=== PATIENT | male | born 1955 | race African-American/Black ===

== ENCOUNTER 2019-02-01 19:12 | Observation (INO) ==
[2019-02-01] MEDS ORDERED: SOLU-MEDROL IV ONE (19:28)
[2019-02-01] MEDS ORDERED: DUONEB (A & A) INH ONE (19:28)
--- NOTE | 2019-02-01 19:35 | PROVIDER DOCUMENTATION ---
HPI-Respiratory General - General Chief Complaint: Cold Symptoms Stated Complaint: wheezing/sob Time Seen by Provider: 02/01/19 19:18 Source: patient Allergies/Adverse Reactions: Patient Allergies Allergy/AdvReac Type Severity Reaction Status Date / Time tetracycline [Tetracycline] AdvReac Intermediate "MY MOUTH Verified 02/01/19 19:26 DRAWS UP AND MY HANDS DRAW" codeine AdvReac ITCHING Verified 02/01/19 19:26 Home Medications: Home Medication List Medication Instructions Recorded Confirmed Last Taken Type Valsartan/Hydrochlorothiazide 1 each PO DAILY #30 tablet 12/05/14 11/24/18 11/24/18 Rx [Valsartan-Hctz 320-25 mg Tab] Clonazepam [Klonopin] 1 mg PO DAILY 01/08/15 11/24/18 11/24/18 History Hydrocodone/APAP 10 mg/325 mg 1 each PO BID 01/08/15 11/24/18 11/23/18 History [[place]-10] Gabapentin 300 mg PO BID 11/24/18 11/24/18 11/23/18 History Amoxicillin/Potassium Clav 1 ea PO BID #20 tab 01/02/19 Unknown Rx [Augmentin 875-125 Tablet] Brompheniramine/Pseudoephed/Dm 10 ml PO Q4-6H PRN PRN #90 syrup 01/02/19 Unknown Rx [Bromfed Dm Cough Syrup] Albuterol Sulfate 2.5 mg INHALATION Q4H PRN PRN #100 01/06/19 Unknown Rx unit Benzonatate [Tessalon [place]] 200 mg PO Q6H PRN PRN #40 cap 01/06/19 Unknown Rx Prednisone 20 mg PO BID #10 tab 01/06/19 Unknown Rx - History of Present Illness-Resp Nature of Presenting Problem: [id number] presents to the ER with c/o wheezing and cough. He states that he thinks it must be a bronchitis flare up, that he gets them real frequently. He states he was just here a few weeks ago with the same symptoms and was given tesslon pearls and albuterol neb for home. He states they seem to help some but now his symptoms have returned and are worse. He states that his cough is much worse at night and he isn't able to sleep. He states he wheezes all night long. He states that he wheezes frequently and often gets URI. He states he had 4 neb treatments [employer]. Context: reports: recent URI Cough Quality/Degree: reports: dry cough Episode Frequency: frequent episodes Modifying Factors: improves with: albuterol nebulizer, coughing, lying down (makes wheezing and cough worse) Associated Symptoms: reports: cough, shortness of breath, wheezing Similar Symptoms Previously?: Yes Recently seen or treated by another doctor?: Yes Review of Systems - Adult - REVIEW OF SYSTEMS - ADULT Constitutional: reports: see HPI. denies: chills, fever Eyes: reports: no symptoms reported Ears, Nose, Mouth & Throat: reports: no symptoms reported. denies: sinus problem Cardiovascular: reports: no symptoms reported, orthopnea. denies: chest pain, poor circulation Respiratory: reports: see HPI, cough, shortness of breath, wheezing Gastrointestinal: reports: no symptoms reported Genitourinary: reports: no symptoms reported Musculoskeletal: reports: no symptoms reported Integumentary: reports: no symptoms reported Neurological: reports: no symptoms reported Psychiatric: reports: no symptoms reported Endocrine: reports: no symptoms reported Hematologic/Lymphatic: reports: no symptoms reported Allergic/Immunologic: reports: no symptoms reported All Other Systems: Reviewed and Negative Past History - Adult - PAST MEDICAL HISTORY-ADULT Review of Records: reports: Old Records Reviewed, Nursing Assessment Review, Medications Reviewed, Social history reviewed & non-contributory. Major Childhood Illnesses: reports: denies history Cardiovascular: reports: HTN, [place] Respiratory: reports: denies history Gastrointestinal: reports: denies history Obstetrical/Gynecological: reports: denies history Genitourinary: reports: denies history Musculoskeletal: reports: denies history Neurological: reports: denies history Psychiatric: reports: denies history Endocrine/Immune: reports: denies history Other Conditions: reports: denies history - PRIOR SURGERIES/PROCEDURES Surgical/Procedure History: reports: none, other (Unspecified back surgery) - PRIOR HOSPITALIZATIONS Prior Hospitalizations: reports: none - IMMUNIZATION STATUS Childhood Immunizations: See Nurse Assessment Flu Vaccine: UTD - FAMILY HISTORY Family History: reviewed, not pertinent - SOCIAL HISTORY Smoking: denies Substance Use: denies Living Situation: family Physical Exam-General - PHYSICAL EXAM-ADULT Initial Vital Signs Reviewed: Yes - CONSTITUTIONAL General Appearance: alert, mild distress - EYES Eyes: PERRL/EOMI, pink conjunctivae - HEAD, EARS, NOSE, MOUTH & THROAT HENMT: normocephalic/atraumatic, moist mucous membranes - NECK Neck: non-tender, full range of motion, supple - RESPIRATORY Respiratory: chest non-tender, wheezing (left >right) - CARDIOVASCULAR Cardiovascular: normal peripheral pulses, regular rate, rhythm - GASTROINTESTINAL (ABDOMEN) Abdominal Exam: normal bowel sounds, non tender, soft - MUSCULOSKELETAL Back Exam: normal inspection Extremity: normal range of motion, non-tender, normal gait - SKIN Integumentary: normal color, normal turgor, warm/dry - NEUROLOGIC Neurologic: sports broadcasting internship II-XII nml as tested - PSYCHIATRIC Psych/Mental Status: normal mood/affect, oriented x 3 - HEART Score HEART Score: History: Slightly Suspicious HEART Score: ECG: Normal HEART Score: Age: 45-65 Years HEART Score: Risk Factors for Atherosclerotic Disease: 1 or 2 Risk Factors HEART Score: Troponin: < or = Normal Limit Total HEART Score:: 2 Progress - PLAN OF CARE/RESULTS Progress/Plan/Lab Results: Vital Signs - 8 hr 02/01/19 19:15 02/01/19 20:16 Temperature 98.4 F Pulse Rate 71 74 Respiratory Rate 16 20 Blood Pressure 186/96 O2 Sat by Pulse Oximetry 97 98 Laboratory Results - last 24 hr 02/01/19 02/01/19 02/01/19 19:35 19:35 19:35 WBC 10.59 RBC 5.15 Hgb 14.2 Hct 42.6 MCV 82.7 MCH 27.6 MCHC 33.3 RDW Std Deviation 13.6 Plt Count 228 MPV 10.7 H Immature Gran % (Auto) 0.0 Neut % (Auto) 62.7 Lymph % (Auto) 24.7 [place] % (Auto) 5.2 Eos % (Auto) 7.0 Baso % (Auto) 0.4 Immature Gran # (Auto) 0.00 Neut # (Auto) 6.64 H Lymph # (Auto) 2.62 [place] # (Auto) 0.55 Eos # (Auto) 0.74 H Baso # (Auto) 0.04 PT 12.2 INR 0.84 PTT (Actin FS) 33.2 D-Dimer, Quantitative < 0.27 Sodium 141 Potassium 3.7 Chloride 102 Carbon Dioxide 27 Anion Gap 12 BUN 11 Creatinine 0.9 Estimated GFR/1.73 m2 > 60 BUN/Creatinine Ratio 12 Glucose 95 Calculated Osmolality 280 Calcium 9.6 Total Bilirubin 0.22 AST 34 ALT 42 Alkaline Phosphatase 87 Total Protein 7.5 Albumin 4.4 Globulin 3.1 Albumin/Globulin Ratio 1.4 Orders Category Date Time Status Saline Loc NOW Care 02/01/19 19:37 Active CHEST-2 VIEWS [RAD] Stat Exams 02/01/19 19:28 Completed CBC WITH ELECTRONIC DIFF [HEME] Stat Lab 02/01/19 19:35 Completed CK PROFILE [SP CHEM] Stat Lab 02/01/19 19:39 Received COMPREHENSIVE METABOLIC PANEL [CHEM] Stat Lab 02/01/19 19:35 Completed D-DIMER [COAG] Stat Lab 02/01/19 19:35 Completed PT [PROTIME WITH INR] [COAG] Stat Lab 02/01/19 19:35 Completed PTT [COAG] Stat Lab 02/01/19 19:35 Completed TROPONIN T Stat Lab 02/01/19 20:36 Received Albuterol 2.5MG/Ipratrop 0.5MG [Duoneb (A & A)] Med 02/01/19 19:28 Discontinued 3 ml INH NOW ONE Methylprednisolone Sod Succ [Solu-Medrol] Med 02/01/19 19:28 Discontinued 60 mg IV NOW ONE Aerosol Treatments Routine Oth 02/01/19 19:29 Completed Aerosol Treatments Stat Oth 02/01/19 19:29 Completed EKG [EKG] Stat Ther 02/01/19 19:37 Ordered Transfer/Admit Order [TRANSFER] Routine Transfer 02/01/19 20:40 Ordered patient verbalizes an understanding of POC and agrees with treatment rendered here today. Patient will be admitted by Dr Rodriguez to the hospital for medical management. Result Diagrams: 02/01/19 19:35 02/01/19 19:35 - REASSESSMENT Reassessment #1 Time Reassessed: 20:34 Status: improving (wheezing has improved slightly since RT, patient is still coughing) - EKG 1 Time of EKG reading by physician:: 19:48 EKG Read and Signed by:: Joann Gregory EKG Interpretation (*Must complete 3 of following elements*): Normal Rate: 65 Rhythm: sinus rhythm [place]: normal QRS: normal [place] Interval: normal ST Wave: normal - XRAY 1 XRAY Study: Chest Impression: Normal (FINDINGS: The lungs are normally expanded and clear. Heart size and mediastinal contours are normal. No pneumothorax or pleural effusion. IMPRESSION: Negative exam.), See EMR Report - CONSULTS/PCP/HOSPITALIST Notification #1 *Consult/PCP/Hospitalist*: Dr Rodriguez Time Discussed: 20:39 Reason/Comments: acute asthma exacerbation Consult Disposition: Will see in ED, Admit Departure - Departure Date of Disposition Decision: 02/01/19 Time of Disposition Decision: 20:43 DIAGNOSIS: Acute asthma exacerbation Qualifiers: Asthma severity: mild Asthma persistence: unspecified Qualified Code(s): J45.901 - Unspecified asthma with (acute) exacerbation Disposition: HOME 01 Certified Medical Emergency: Emergent Condition: Critical Additional Freetext Instructions: ED Follow Up Instructions: You have been treated by a care provider in the Emergency Department. These instructions are being provided to you so you can have an understanding of how to care for yourself upon discharge. Upon discharge from the Emergency Depar tment, you are responsible for making arrangements for follow-up care by a physician of your choice. Take all prescribed medications as directed. Return to the Emergency Department immediately for any new or worsening symptoms. You may call the Physician Referral phone number at [phone] to obtain a list of Physicians who are taking new patients. Referrals and Follow-Ups: Jag Rasheed MD [Primary Care Provider] - - Critical Care Note This patient required my direct & personal management of CC.: No Attestation - Physician/ LUBNA Attestation Patient care was provided by Advanced Practice Provider:: Yes Advanced Practice Provider:: Rajesh Singh Advanced Practice Provider documentation review:: The Mid-level provider documentation, treatment plan and medical decision making was reviewed by the physician who agrees with all treatment and medical decision making by the MLP. The physician spent face to face time with patient:: No Advanced Practice Provider documentation review:: Supervising physician onsite and consulted in the evaluation and care of this patient. The physician did not have a face to face encounter with the patient.
--- NOTE | 2019-02-01 19:53 | Diag Imaging Result Doc PS360 ---
CHEST-2 VIEWS - 02/01/2019 INDICATION: wheezing/sob COMPARISON: 01/06/2019 FINDINGS: The lungs are normally expanded and clear. Heart size and mediastinal contours are normal. No pneumothorax or pleural effusion. IMPRESSION: Negative exam. Electronically signed by Gus Xie 02/01/2019 7:51 PM
[2019-02-01 19:55] LABS: BASO# 0.04 X1000 (0.0-0.2); BASO% 0.4 % (0.0-0.8); EOS# 0.74 X1000 (0.0-0.7); HEMATOCRIT 42.6 % (42.0-52.0); HEMOGLOBIN 14.2 g/dL (14.0-18.0); LYMPH# 2.62 X1000 (1.2-3.4); LYMPH% 24.7 % (20.5-51.1); MCH 27.6 PG (27-31); MCHC 33.3 g/dL (33-37); MCV 82.7 FL (81-99); MONO# 0.55 X1000 (0.11-0.59); MONO% 5.2 % (1.7-9.3); MPV 10.7 FL (7.4-10.4); NEUT# 6.64 X1000 (1.4-6.5); NEUT% 62.7 % (42.2-75.2); PLT 228 X1000 (130-400); RBC 5.15 XMIL (4.7-6.1); RDW 13.6 % (11.5-14.5); WBC 10.59 X1000 (4.8-10.8)
[2019-02-01 20:03] LABS: INR 0.84; PROTIME 12.2 Seconds (11.0-16.0)
[2019-02-01 20:04] LABS: PTT 33.2 Seconds (22.3-41.8)
[2019-02-01 20:24] LABS: AGAP 12; ALB/GLOB RATIO 1.4; ALBUMIN 4.4 g/dL (3.5-5.0); ALKALINE PHOSPHATASE 87 U/L (32-122); BUN 11 mg/dL (8-22); CALCIUM 9.6 mg/dL (8.8-10.2); CHLORIDE 102 mmol/L (98-107); COSMO 280; CREATININE 0.9 mg/dL (0.7-1.2); ESTIMATED GFR > 60; GLUCOSE 95 mg/dL (70-104); GOT 34 U/L (10-34); GPT 42 U/L (10-44); POTASSIUM 3.7 mmol/L (3.5-5.1); SODIUM 141 mmol/L (136-145); TCO2 27 mmol/L (25-35); TOTAL BILIRUBIN 0.22 mg/dL (0.20-1.00); TOTAL PROTEIN 7.5 g/dL (6.3-8.3)
[2019-02-01] MEDS ORDERED: NEURONTIN PO SCH (21:00)
[2019-02-01] MEDS ORDERED: CATAPRES PO SCH (21:00)
[2019-02-01] MEDS ORDERED: NORCO-10 PO SCH ×2 (21:00)
[2019-02-01] MEDS ORDERED: LOVENOX SUBQ SCH (21:08)
[2019-02-01] MEDS ORDERED: TYLENOL PO PRN (21:08)
[2019-02-01] MEDS ORDERED: ZOFRAN IV PRN (21:08)
[2019-02-01] MEDS ORDERED: FLONASE NAS SCH (21:30)
[2019-02-01 21:34] LABS: CK INDEX 1.1 (0.0-2.5); CK-MB 7.74 ng/mL (0.0-5.0)
[2019-02-01] MEDS: DUONEB (A & A) INH SCH (21:44)
[2019-02-01] MEDS: BROVANA NEB INH SCH (21:44)
--- NOTE | 2019-02-01 22:01 | HISTORY AND PHYSICAL ---
PRIMARY CARE PHYSICIAN: Jag Rasheed MD. REASON FOR ADMISSION: Shortness of breath for the last 2-3 weeks. HISTORY OF PRESENT ILLNESS: Mr. King Pena is a 63-year-old, -Malagasy man, with past medical history of hypertension and DJD of the spine. He reports that this is his 4th visit to the ER, last visit was 3 weeks ago. He has come to the ER for the same complaints of acute shortness of breath, which is always diagnosed as bronchitis and he is sent home with an inhaler, which does not seem to work for him. He reports that most of the time he has profound nocturnal coughing spells which get better in the morning. He says at night, it is also accompanied by worsening shortness of breath. He says during the course of the day, sometimes he might get an attack of difficulty breathing, but it resolves on its own after a few minutes. This is also accompanied by occasional transient chest pain that lasts a few seconds, nonradiating. The patient reports that he has a longstanding history of nasal congestion and occasional seasonal spells. He denies any oculonasal pruritus. He states that the reason why he came today is because he was at his cousin's house and had tightness in his chest with acute shortness of breath, and wanted this to get checked out. He denies any fever or chills. REVIEW OF SYSTEMS: No GI or complaints. No PND or orthopnea, any anginal- type symptoms. No focal neurological complaints, rash, or arthralgia. Denies any postnasal drip. ALLERGIES: Codeine and tetracycline. MEDICATIONS: Klonopin 1 mg daily, Neurontin 300 mg b.i.d., clonidine 0.1 mg b.i.d., [place] 10 mg b.i.d., albuterol q.4 p.r.n. FAMILY HISTORY: Dad had asthma. Mom of a heart attack. Dad also has COPD and colon cancer. SOCIAL HISTORY: with 2 kids. Does not smoke, drink, or use drugs. SURGICAL HISTORY: None. LABORATORY AND DIAGNOSTIC DATA: Chest film is devoid of any acute cardiopulmonary process. White count 11,000, hemoglobin and hematocrit 12 and 42, platelets 228,00, with mildly elevated eosinophils. Chemistries, totally benign. D-dimer is negative. PT and PTT normal. Troponin is pending. EKG is not available for my review at this time. PHYSICAL EXAMINATION: VITAL SIGNS: Blood pressure 186/96, heart rate 71, respirations 16, temperature is 98.4 degrees, O2 saturation is 97% on room air. GENERAL: He is a pleasant, middle-aged, -Malagasy man, not in acute distress. He is alert, oriented to person and time, with normal mood and affect. HEENT: Head is normocephalic, atraumatic. Eyes, ROM, EOMI. He is anicteric and not pale. He does have No central cyanosis. NECK: Supple. No JVD or carotid bruit. No thyromegaly. No cervical lymphadenopathy. CHEST: Decreased entry in the bases. A few expiratory wheezes. CARDIOVASCULAR: First and second heart sounds heard. No gallops, murmurs, or rubs. Rhythm is regular. ABDOMEN: Full. Not tender. No masses or organomegaly. Bowel sounds are normal. RECTAL: Deferred at this time. EXTREMITIES: Patient has no edema, clubbing, or peripheral cyanosis. Good distal pulses and volumes which are symmetrical, regular. NEUROLOGICAL: No gross focal deficits. No tremors. SKIN: Intact. No breakdown, lesion, or erythema. MUSCULOSKELETAL: Grossly normal. ASSESSMENT: At this time is: 1. Acute asthma exacerbation. 2. Hypertension. 3. Seasonal allergic rhinitis. PLAN: Patient will be admitted for optimal treatment for acute on chronic, persistent asthma with systemic steroids and will initiate prophylactic inhalation therapy. Patient will need to be taught by Respiratory Therapy who to use his MDI because he says he was discharged on albuterol inhaler, but does not know how to use them appropriately. Also, will start patient on Flonase to address the nasal allergic component, which could be a trigger. Will start patient on long- and short-acting bronchodilators. Hopefully, the patient can be discharged tomorrow evening, if symptoms improve. The patient's mild eosinophilia confirms my suspicion of an atopic process. We are currently awaiting his troponin, and if positive, may alter our treatment, but I would doubt this. cc: Sheldon Rodriguez MD MTDNancy
--- NOTE | 2019-02-01 23:39 | EKG Report ---
Test Performed on : 02/01/2019 7:48:30 PM Test Reason : sob Blood Pressure : / mmHG Vent. Rate : 065 BPM Atrial Rate : 065 BPM P-R Int : 178 ms QRS Dur : 080 ms QT Int : 390 ms P-R-T Axes : 046 -14 068 degrees QTc Int : 405 ms Normal sinus rhythm. Minimal voltage criteria for LVH, may be normal variant Nonspecific T wave abnormality Abnormal ECG When compared with ECG of 10-JAN-2018 09:12, premature atrial complexes. are no longer present Unconfirmed Result
[2019-02-02] MEDS: CATAPRES PO SCH ×2 (00:11→09:32)
[2019-02-02] MEDS: NORCO-10 PO SCH ×2 (00:12→09:32)
[2019-02-02] MEDS: NEURONTIN PO SCH ×2 (00:12→09:30)
[2019-02-02] MEDS: SOLU-MEDROL IV SCH ×2 (02:15→11:26)
[2019-02-02] MEDS: FLOVENT 110 MICROGM HFA INH SCH ×2 (03:42→09:56)
[2019-02-02] MEDS: DUONEB (A & A) INH SCH ×3 (03:55→09:56)
[2019-02-02 07:03] LABS: AGAP 12; BUN 10 mg/dL (8-22); CALCIUM 9.4 mg/dL (8.8-10.2); CHLORIDE 99 mmol/L (98-107); COSMO 277; CREATININE 0.8 mg/dL (0.7-1.2); ESTIMATED GFR > 60; GLUCOSE 144 mg/dL (70-104); POTASSIUM 4.7 mmol/L (3.5-5.1); SODIUM 138 mmol/L (136-145); TCO2 27 mmol/L (25-35)
[2019-02-02 07:29] VITALS: BP 174/100
[2019-02-02] MEDS ORDERED: KLONOPIN PO SCH (09:00)
[2019-02-02] MEDS: TESSALON PO SCH ×2 (09:32→11:26)
[2019-02-02] MEDS: BROVANA NEB INH SCH (09:56)
--- NOTE | 2019-02-02 22:30 | DISCHARGE SUMMARY ---
ADMISSION DATE: 02/01/2019 DISCHARGE DATE: 02/02/2019 DISCHARGE DIAGNOSES: 1. Acute asthma exacerbation, resolved. 2. Hypertension. 3. Seasonal allergies. PROCEDURES PERFORMED: Chest x-ray dated 02/01/2019. Impression: Negative exam. HOSPITAL COURSE: A 63-year-old male with a past medical history of hypertension and DJD of the spine. He reported that this is the 4th visit to the emergency department and his last visit was 3 weeks ago. He has been admitted on 02/01/2019. He came in complaining of shortness of breath. He has been always diagnosed with bronchitis and sent home with an inhaler, which works sometimes for him but not all the time. He has been having coughing spells mostly during the night and they get better in the morning. Upon admission, he had a decreased air entry bilaterally mostly at the bases with a few expiratory wheezes. He was placed on steroids, breathing treatment. Today, he is completely asymptomatic. He was able to take a shower by himself. He is not having shortness of breath or problem talking. No chest pain either. This patient will be discharged home with breathing treatment and steroids as well. We teach the patient how to use the albuterol inhaler, the pump, and he seems to understand. He feels good today. PHYSICAL EXAMINATION: Vital signs: Temperature 98.1 degrees, pulse 88, respiratory rate 18, blood pressure 174/100, oxygen saturation 97% on room air. HEENT: Head normocephalic. No trauma. PERRLA. Neck: Supple. No JVD. No masses. Central trachea. Chest: Clear to auscultation. No wheezing. No rales. A little bit of crepitus at the bases. Abdomen: Soft, nontender, nondistended. No hepatosplenomegaly. Extremities: No edema, no clubbing, no cyanosis. Neurological: The patient is alert. He is oriented x3. No focal neurological deficits. LABORATORY: Sodium 138, potassium 4.7, chloride 99, bicarbonate 27, BUN 10, creatinine 0.8, glucose 144, calcium 9.4. DISCHARGE MEDICATIONS: Albuterol sulfate 2.5 mg inhalation q.4 hours as needed. Also he will be discharged with albuterol sulfate inhaler/pump 2 puff inhaler q.6 hours as needed, Tessalon 200 mg p.o. b.i.d., Klonopin 1 mg p.o. daily, clonidine 0.1 mg p.o. b.i.d., Flonase 2 spray intranasally at bedtime, Flovent inhaler 110 mcg HFA 2 puff inhaler b.i.d., gabapentin 300 mg p.o. b.i.d., [place] 10. He will continue with his home dose of 1 tablet p.o. b.i.d. and Medrol Dosepak as directed. DISCHARGE CONDITION: The patient is stable medical condition tolerating p.o. ambulating by himself. No shortness of breath. He will be discharged home. Follow up with his primary care doctor in 1 week. cc: Titi Manley MD
== END 2019-02-02 12:48 | disposition home or self-care (01) ==
LOC: ED 19:12 → 3N 23:36 → INTOOBSV 23:36 → SUATTDRO 23:36
PROVIDERS: ATTEND Internal Medicine
CPT/HCPCS: 71020; 71046; 80048; 80053; 82550; 82553; 84484; 85025; 85379; 85610; 85730; 93005; 94640; 94760; A9270; J1650; J2930

== ENCOUNTER 2019-03-03 10:06 | Observation (INO) ==
[2019-03-03] MEDS ORDERED: CATAPRES PO ONE (10:34)
[2019-03-03 10:42] LABS: BASO# 0.02 X1000 (0.0-0.2); BASO% 0.2 % (0.0-0.8); EOS# 0.32 X1000 (0.0-0.7); EOS% 3.2 % (0.0-10.0); HEMATOCRIT 43.9 % (42.0-52.0); HEMOGLOBIN 14.3 g/dL (14.0-18.0); LYMPH# 2.65 X1000 (1.2-3.4); LYMPH% 26.7 % (20.5-51.1); MCH 27.8 PG (27-31); MCHC 32.6 g/dL (33-37); MCV 85.2 FL (81-99); MONO# 0.69 X1000 (0.11-0.59); MONO% 6.9 % (1.7-9.3); MPV 11.1 FL (7.4-10.4); NEUT# 6.25 X1000 (1.4-6.5); PLT 235 X1000 (130-400); RBC 5.15 XMIL (4.7-6.1); WBC 9.93 X1000 (4.8-10.8)
--- NOTE | 2019-03-03 10:49 | Diag Imaging Result Doc PS360 ---
EXAM: CHEST-2 VIEWS 03/03/2019 HISTORY: chest pain TECHNIQUE: PA and lateral chest COMMENT: There is no evidence of acute cardiac or pulmonary disease. Compared to 02/01/2019 there has been no significant change in the appearance of the chest. IMPRESSION: No acute disease. Electronically signed by Remy Mccollum 03/03/2019 10:46 AM
[2019-03-03 11:00] LABS: AGAP 13; BUN 15 mg/dL (8-22); CALCIUM 9.6 mg/dL (8.8-10.2); CHLORIDE 101 mmol/L (98-107); COSMO 274; CREATININE 1.1 mg/dL (0.7-1.2); ESTIMATED GFR > 60; GLUCOSE 113 mg/dL (70-104); POTASSIUM 4.4 mmol/L (3.5-5.1); SODIUM 136 mmol/L (136-145); TCO2 22 mmol/L (25-35)
[2019-03-03 11:01] LABS: ALB/GLOB RATIO 1.6; ALBUMIN 4.6 g/dL (3.5-5.0); ALKALINE PHOSPHATASE 72 U/L (32-122); GOT 32 U/L (10-34); GPT 46 U/L (10-44); TOTAL BILIRUBIN 0.51 mg/dL (0.20-1.00); TOTAL PROTEIN 7.4 g/dL (6.3-8.3)
[2019-03-03 11:02] LABS: INR 1.02; PROTIME 13.6 Seconds (11.0-16.0)
[2019-03-03 11:03] LABS: URINE SOURCE CATH
[2019-03-03 11:09] LABS: CK PROFILE 724 U/L (24-204)
--- NOTE | 2019-03-03 11:09 | Diag Imaging Result Doc PS360 ---
EXAM: CT HEAD W/O CONTRAST HISTORY: speech, L arm difficulty TECHNIQUE: CT head without contrast COMPARISON: 04/11/2014 FINDINGS: No parenchymal hemorrhage. No epidural or subdural hematoma. No subarachnoid hemorrhage. Mild microvascular ischemic changes. No mass identified on this noncontrasted exam. No hydrocephalus. No sinus opacification. IMPRESSION: 1.No hemorrhage 2.Mild microvascular ischemic changes. This exam was performed using automated exposure control, adjustment of mA or kV according to patient size, and/or use of iterative reconstruction technique. Electronically signed by Bhanu Kelley 03/03/2019 11:06 AM
[2019-03-03 11:10] LABS: UR EPITHELIAL CELLS <10 /HPF (<10); URINE BACTERIA NEGATIVE /HPF; URINE RBC <10 /HPF (<10); URINE WBC <10 /HPF (<10)
[2019-03-03 11:11] LABS: BILIRUBIN URINE NEGATIVE (NEGATIVE); BLOOD URINE SMALL (NEGATIVE); COLOR YELLOW; GLUCOSE URINE NEGATIVE (NEGATIVE); KETONE URINE NEGATIVE (NEGATIVE); LEUKOCYTES URINE NEGATIVE (NEGATIVE); NITRITE URINE NEGATIVE (NEGATIVE); PROTEIN URINE 70 mg/dL (NEGATIVE); SP GRAVITY URINE 1.028; TURBIDITY URINE CLEAR (CLEAR); UROBILINOGEN URINE NORMAL (NORMAL)
[2019-03-03 11:14] LABS: PTT 33.4 Seconds (22.3-41.8)
[2019-03-03 11:19] LABS: UR AMPHETAMINES QUAL NONE DETECTED (NONE DETECT); UR BARBITUATES QUAL NONE DETECTED (NONE DETECT); UR BENZODIAZEPIN QUAL NONE DETECTED (NONE DETECT); UR CANNABINOIDS QUAL NONE DETECTED (NONE DETECT); UR COCAINE QUAL NONE DETECTED (NONE DETECT); UR METHADONE QUAL NONE DETECTED (NONE DETECT); UR OPIATES QUAL NONE DETECTED (NONE DETECT); UR OXYCODONE QUAL NONE DETECTED (NONE DETECT); UR PCP QUAL NONE DETECTED (NONE DETECT)
[2019-03-03 11:27] LABS: CK INDEX 1.5 (0.0-2.5); CK-MB 10.93 ng/mL (0.0-5.0)
--- NOTE | 2019-03-03 11:49 | EKG Report ---
Test Performed on : 03/03/2019 10:12:25 AM Test Reason : chest pain Blood Pressure : / mmHG Vent. Rate : 086 BPM Atrial Rate : 086 BPM P-R Int : 170 ms QRS Dur : 074 ms QT Int : 358 ms P-R-T Axes : 044 -22 084 degrees QTc Int : 428 ms Normal sinus rhythm. Possible Left atrial enlargement Left ventricular hypertrophy Nonspecific T wave abnormality Abnormal ECG When compared with ECG of 01-FEB-2019 19:48, (Unconfirmed) No significant change was found Unconfirmed Result
--- NOTE | 2019-03-03 12:45 | PROVIDER DOCUMENTATION ---
This chart was entered by Forest Gill Scribe, acting as scribe for Ever Olsen MD. HPI-General Adult - General Chief Complaint: Extremity Pain Stated Complaint: STROKE SYMPTOMS X 3 DAYS Time Seen by Provider: 03/03/19 10:13 Source: patient Allergies/Adverse Reactions: Patient Allergies Allergy/AdvReac Type Severity Reaction Status Date / Time tetracycline [Tetracycline] AdvReac Intermediate "MY MOUTH Verified 03/03/19 11:23 DRAWS UP AND MY HANDS DRAW" codeine AdvReac ITCHING Verified 03/03/19 11:23 Home Medications: Home Medication List Medication Instructions Recorded Confirmed Last Taken Type Clonazepam [Klonopin] 1 mg PO BID 01/08/15 03/03/19 11/24/18 History Hydrocodone/APAP 10 mg/325 mg 1 each PO BID 01/08/15 03/03/19 11/23/18 History [[place]-10] Gabapentin 300 mg PO BID 11/24/18 03/03/19 11/23/18 History Clonidine [Catapres] 0.1 mg PO BID 02/01/19 03/03/19 02/01/19 09:30 History Albuterol Sulfate 2.5 mg INHALATION Q4H PRN PRN #100 02/02/19 03/03/19 Unknown Rx unit Albuterol Sulfate Inhaler 2 puff INH Q6H PRN PRN #1 inhaler 02/02/19 03/03/19 Unknown Rx [Ventolin Hfa] Benzonatate [Tessalon] 200 mg PO BID #20 cap 02/02/19 03/03/19 Unknown Rx Fluticasone 50 Mcg Nasal [place] 2 spray INTRANASAL QHS PRN 03/03/19 03/03/19 Unknown History [Flonase] Fluticasone Propionate 110 INH 2 puff INH BID PRN 03/03/19 03/03/19 Unknown History [Flovent 110 Microgm Hfa] - History of Present Illness -Gen Adult Nature of Presenting Problems: Pt is a 63 yom who presents to the ED with multiple complaints. Pt states he has been having left arm pain, left leg pain, slurred speech, a headache, and mild chest pain three days ago. Pt reports a hx of HTN, nerve damage, degenerative discs, and asthma. Pt denies any shortness of breath, abdominal pain, nausea, or vomiting. Upon examination the pt did not show signs of nystagmus or pronator drift in his extremities. Upon examination the pt had a mild tremor in his left upper extremity. Upon examination the pt had decreased sensation to the left side of his face, CN 7 division 1-3 and slow hand motions on upper extremity tests. Location of Pain/Injury: reports: head, upper extremity, lower extremity Quality of Pain: reports: sharp Severity: reports: mild Onset/Duration: reports: 3 days ago Timing: reports: still present Associated Symptoms: reports: arm pain, headaches, joint pain Similar Symptoms Previously?: No Recently seen or treated by another doctor?: No Review of Systems - Adult - REVIEW OF SYSTEMS - ADULT Constitutional: reports: no symptoms reported Eyes: reports: no symptoms reported Ears, Nose, Mouth & Throat: reports: see HPI Cardiovascular: reports: see HPI Respiratory: reports: no symptoms reported Gastrointestinal: reports: no symptoms reported Genitourinary: reports: no symptoms reported Musculoskeletal: reports: see HPI, joint pain, muscle weakness Integumentary: reports: no symptoms reported Neurological: reports: see HPI, slurred speech Psychiatric: reports: no symptoms reported Endocrine: reports: no symptoms reported Hematologic/Lymphatic: reports: no symptoms reported Allergic/Immunologic: reports: no symptoms reported All Other Systems: Reviewed and Negative Past History - Adult - PAST MEDICAL HISTORY-ADULT Review of Records: reports: Old Records Reviewed, Nursing Assessment Review, Medications Reviewed, Social history reviewed & non-contributory. Major Childhood Illnesses: reports: denies history Cardiovascular: reports: HTN, NE Respiratory: reports: denies history Gastrointestinal: reports: denies history Obstetrical/Gynecological: reports: denies history Genitourinary: reports: denies history Musculoskeletal: reports: denies history Neurological: reports: denies history Psychiatric: reports: denies history Endocrine/Immune: reports: denies history Other Conditions: reports: denies history - PRIOR SURGERIES/PROCEDURES Surgical/Procedure History: reports: none, other (Unspecified back surgery) - PRIOR HOSPITALIZATIONS Prior Hospitalizations: reports: none - IMMUNIZATION STATUS Childhood Immunizations: See Nurse Assessment Flu Vaccine: UTD - FAMILY HISTORY Family History: reviewed, not pertinent - SOCIAL HISTORY Smoking: denies, non-smoker Substance Use: alcohol Alcohol Use Frequency: occasionally Physical Exam-General - CONSTITUTIONAL General Appearance: alert, mild distress - EYES Eyes: PERRL/EOMI, pink conjunctivae - HEAD, EARS, NOSE, MOUTH & THROAT HENMT: moist mucous membranes - NECK Neck: non-tender, full range of motion - RESPIRATORY Respiratory: chest non-tender, lungs clear, normal breath sounds, no pleuratic chest pain, no respiratory distress - CARDIOVASCULAR Cardiovascular: normal peripheral pulses, regular rate, rhythm, no edema, no gallop, no JVD - GASTROINTESTINAL (ABDOMEN) Abdominal Exam: non tender, soft - MUSCULOSKELETAL Back Exam: normal inspection Extremity: non-tender, other (See HPI) - SKIN Integumentary: normal color, warm/dry - NEUROLOGIC Neurologic: abnormal content architect II-XII (See HPI), motor weakness, other (See HPI) - PSYCHIATRIC Psych/Mental Status: normal mood/affect, normal thought content, normal thought process, oriented x 3 Progress - PLAN OF CARE/RESULTS Progress/Plan/Lab Results: Vital Signs - 8 hr 03/03/19 10:07 Temperature 99.0 F Pulse Rate 92 H Respiratory Rate 18 Blood Pressure 156/104 O2 Sat by Pulse Oximetry 99 Laboratory Results - last 24 hr 03/03/19 10:18 WBC 9.93 RBC 5.15 Hgb 14.3 Hct 43.9 MCV 85.2 MCH 27.8 MCHC 32.6 L RDW Std Deviation 14.0 Plt Count 235 MPV 11.1 H Neut % (Auto) 63.0 Lymph % (Auto) 26.7 [place] % (Auto) 6.9 Eos % (Auto) 3.2 Baso % (Auto) 0.2 Neut # (Auto) 6.25 Lymph # (Auto) 2.65 [place] # (Auto) 0.69 H Eos # (Auto) 0.32 Baso # (Auto) 0.02 Orders Category Date Time Status Cardiac Monitoring DIRECTED Care 03/03/19 10:28 Active Saline Loc NOW Care 03/03/19 10:28 Active CHEST-2 VIEWS [RAD] Stat Exams 03/03/19 10:[address] HEAD W/O CONTRAST [CT] Stat Exams 03/03/19 10:33 Ordered CBC WITH ELECTRONIC DIFF [HEME] Stat Lab 03/03/19 10:18 Completed CK PROFILE [SP CHEM] Stat Lab 03/03/19 10:29 Received COMPREHENSIVE METABOLIC PANEL [CHEM] Stat Lab 03/03/19 10:29 Received PRO B-NATRIURETIC PEPTIDE Stat Lab 03/03/19 10:18 Received PROTIME WITH INR [COAG] Stat Lab 03/03/19 10:18 Received PTT [COAG] Stat Lab 03/03/19 10:18 Received TROPONIN T Stat Lab 03/03/19 10:18 Received URINALYSIS W/POSS RFLX CULT [URINALYSIS] Stat Lab 03/03/19 10:34 Uncollected URINE DRUG SCREEN Stat Lab 03/03/19 10:34 Uncollected Clonidine [Catapres] Med 03/03/19 10:34 Discontinued 0.2 mg PO NOW ONE CP/SOB/Palp >45 yrs of Age Stat Oth 03/03/19 10:28 Ordered EKG [EKG] Stat Ther 03/03/19 10:28 Ordered Result Diagrams: 03/03/19 10:18 03/03/19 10:18 - EKG 1 Time of EKG reading by physician:: 10:15 EKG Read and Signed by:: Ever Olsen EKG Interpretation (*Must complete 3 of following elements*): Abnormal (Possible left atrial enlargement; left ventricular hypertrophy; Nonspecific T wave abnormality) Rate: 86 Rhythm: NSR [place]: left QRS: normal PA Interval: normal ST Wave: non-specific ST changes - XRAY 1 XRAY: Bilateral XRAY Study: Chest Impression: See EMR Report ( EXAM: CHEST-2 VIEWS 03/03/2019 HISTORY: chest pain TECHNIQUE: PA and lateral chest COMMENT: There is no evidence of acute cardiac or pulmonary disease. Compared to 02/01/2019 there has been no significant change in the appearance of the chest. IMPRESSION: No acute disease. Electronically signed by Remy Mccollum 03/03/2019 10:46 AM 03/03/19 1046 Interpreting Physician: Remy Mccollum MD Dictated Date/Time: 03/03/19 1046 cc: Ever Olsen MD; Jag Rasheed MD) - CONSULTS/PCP/HOSPITALIST Notification #1 *Consult/PCP/Hospitalist*: Dr. Richardson (Hospitalist) Time Discussed: 12:35 Reason/Comments: Made aware of pt and accepts admission Consult Disposition: Admit Departure - Departure Date of Disposition Decision: 03/03/19 Time of Disposition Decision: 12:39 DIAGNOSIS: CVA (cerebral vascular accident) Disposition: ADMITTED INPATIENT 09 Certified Medical Emergency: Emergent Condition: Stable Additional Freetext Instructions: ED Follow Up Instructions: You have been treated by a care provider in the Emergency Department. These instructions are being provided to you so you can have an understanding of how to care for yourself upon discharge. Upon discharge from the Emergency Department, you are responsible for making arrangements for follow-up care by a physician of your choice. Take all prescribed medications as directed. Return to the Emergency Department immediately for any new or worsening symptoms. You may call the Physician Referral phone number at [phone] to obtain a list of Physicians who are taking new patients. Referrals and Follow-Ups: Jag Rasheed MD [Primary Care Provider] - - Critical Care Note This patient required my direct & personal management of CC.: No Attestation - Physician/ LUBNA Attestation Patient care was provided by Advanced Practice Provider:: No The physician spent face to face time with patient:: Yes Advanced Practice Provider documentation review:: Supervising physician onsite and consulted in the evaluation and care of this patient. The physician did have a face to face encounter with the patient. This chart was documented by the indicated scribe, (Forest Gill, Scribe) and accurately reflects the services I performed and decisions made by me, Ever Olsen MD, as attested by the provider's signature.
[2019-03-03] MEDS ORDERED: ASPIRIN PO STA (12:47)
[2019-03-03] MEDS ORDERED: TYLENOL PO PRN (13:33)
[2019-03-03] MEDS ORDERED: ZOFRAN IV PRN (13:33)
[2019-03-03] MEDS ORDERED: TORADOL PO ONE (14:06)
--- NOTE | 2019-03-03 14:29 | HISTORY AND PHYSICAL ---
PRIMARY CARE PROVIDER: Jag Rasheed MD CHIEF COMPLAINT: Right-sided weakness, numbness, burning pain, headache, slurred speech. HISTORY OF PRESENT ILLNESS: Mr. Pena is a 63-year-old gentleman, who carries a past medical history of hypertension, degenerative joint disease of the spine, asthma, and seasonal allergies, who had recently been admitted to our service back in January for an asthma exacerbation. He then reported back to the ED on 02/15/2019 after he fell in the bathtub, and at that time, he was complaining of right elbow, left hip and thigh pain, as well as back tightness. He reports with his degenerative disk disease they are wanting to replace the disk; however, he has not made up his mind about surgery. He states 3 days ago at night he started having a sharp shooting pain that goes down his left arm. He has some left hand numbness. He also reported a brief episode of the same type of pain in his chest that started on the left, went to the right, and it was over just as soon as it started. He reported some slurred speech yesterday that only lasted for a few seconds. He felt like he could not get his words out right, and this morning he started to have shooting pain going down his right arm and left leg pain shooting, as well as toe numbness. In the ED, he did have a head CT that showed no microvascular ischemic changes. We are going to go ahead and do a full neurological workup. We have already ordered a brain MRI/MRA, and given his numbness and burning sensation, we will go ahead and do a CT of the cervical and lumbar spine and continue with further evaluation and treatment. PAST MEDICAL HISTORY: 1. Hypertension. 2. Degenerative joint disease of the spine for which he says he needs the disks repaired. 3. Asthma. 4. Seasonal allergies. SURGICAL HISTORY: None. FAMILY HISTORY: Dad with asthma. Mom of a heart attack. Father had COPD and colon cancer as well. SOCIAL HISTORY: He is . He has 2 children. No alcohol, tobacco, or illicit drug use. ALLERGIES: Codeine and tetracycline. HOME MEDICATIONS: 1. Albuterol sulfate 2.5 mg inhaled q.4 h. p.r.n. wheezing, shortness of breath. 2. Albuterol sulfate inhaler p.r.n. 3. Tessalon [place] 200 mg p.o. b.i.d. 4. Catapres 0.1 mg p.o. b.i.d. 5. Flonase 2 sprays nasal at bedtime p.r.n. congestion. 6. Flovent 110 mcg inhaler 2 puffs inhaled b.i.d. p.r.n. cough. 7. Klonopin 1 mg p.o. b.i.d. 8. Gabapentin 300 mg p.o. b.i.d. 9. [place] 10 one each p.o. b.i.d. REVIEW OF SYSTEMS: A 12 point review of systems was completely negative except for those mentioned in HPI. PHYSICAL EXAMINATION: VITAL SIGNS: Temperature is 98.6 degrees, heart rate 64, respirations 18, blood pressure 151/107, O2 is 99% on room air. GENERAL: Mr. Pena is a 63-year-old male, who is sitting up on the side of bed and talking on his cell phone, in no acute distress. HEENT: Atraumatic, normocephalic. PERRL. NECK: Supple. Trachea midline. CARDIOVASCULAR: S1, S2 appreciated. No murmurs, gallops, or rubs noted. RESPIRATORY: Lung sounds clear bilaterally. GASTROINTESTINAL: Soft, nontender, nondistended. Positive bowel sounds 4 quadrants. EXTREMITIES: The patient had a good grasp and strength upper and lower bilaterally. However, the right was definitely 5/5. The left was slightly weaker than the right, but still good grasp strength. He was able to stand up from the side of the bed on his own. He moved around without any issues. No other focal deficits noted. DIAGNOSTIC STUDIES: Head CT: No hemorrhage, mild microvascular ischemic changes. EKG: Normal sinus rhythm. Chest x-ray: No acute disease. LABORATORY DATA: White count 9, hemoglobin 14, hematocrit 43, platelet count of 235,000. Sodium 136, potassium 4.4, BUN 15, creatinine 1.1, blood glucose is 113. Troponin was less than 0.010. Toxicology screen was negative. Urinalysis is negative for bacteria nitrate. ASSESSMENT AND PLAN: 1. Transient ischemic attack versus cerebrovascular accident versus nerve pain, rule out. We will do a full neurological workup. Given that the patient does have some symptoms of TIA versus CVA, we will do carotid Dopplers, echocardiogram, brain MRI/MRA. Continue with full- dose aspirin, statin check lipid profile, neurological checks. 2. Left upper and lower extremity nerve pain. We will continue with his home gabapentin. We will get cervical and lumbar CT. 3. Asthma without any exacerbation. 4. Hypertension. We will allow for permissive hypertension 220/120 for 24 hours. 5. Seasonal allergies. Aware. Further recommendation to follow physician evaluation and laboratory and diagnostic data. Dictated by YASMEEN Crawley for Kp Pualino MD Addendum: Patient seen and examined by myself. Agree with YASMEEN note. It reflects my assessment and plan. Patient is being admitted for TIA workup. We have order MRI of brain and MRA of neck as well. Also CT of lumbar spine has been ordered. Will monitor patient closely and follow up those results. cc: Kp Paulino MD MTDD
--- NOTE | 2019-03-03 15:41 | Diag Imaging Result Doc PS360 ---
EXAM: MRI BRAIN W/O CONTRAST 03/03/2019 HISTORY: cva TECHNIQUE: T1 sagittal and axial, T2, FLAIR, DWI axial and coronal gradient echo. COMMENT: There is mucosal thickening in both maxillary sinuses particularly the inferior portion of the left. There is no evidence of intracranial mass effect or bleed. There is extensive abnormal increased T2-weighted signal intensity in the white matter both hemispheres particularly in the periventricular white matter posteriorly adjacent to the atria of the lateral ventricles and in the subcortical white matter of the convexities. There is no evidence of restricted diffusion. IMPRESSION: Extensive chronic ischemic microvascular white matter change. Chronic maxillary sinusitis. Electronically signed by Remy Mccollum 03/03/2019 3:38 PM
--- NOTE | 2019-03-03 15:42 | Diag Imaging Result Doc PS360 ---
EXAM: MRA BRAIN W/O CONTRAST 03/03/2019 HISTORY: cva TECHNIQUE: 3-D [id number] COMMENT: There is no evidence of major branch occlusion or aneurysm. There are no previous studies available for comparison. IMPRESSION: Normal study. Electronically signed by Remy Mccollum 03/03/2019 3:39 PM
--- NOTE | 2019-03-03 16:20 | Diag Imaging Result Doc PS360 ---
EXAM: CT CERV/THORAX/LUMB SPINE W/O 03/03/2019 HISTORY: Right sided weakness, numbness and burning pain TECHNIQUE: This exam was performed using automated exposure control, adjustment of mA or kV according to patient size, and/or use of iterative reconstruction technique. COMMENT: Cervical spine: At the C2-3 level there is no evidence of spinal or foraminal stenosis. At C3-4 there is posterior osteophyte formation without evidence of significant spinal or foraminal stenosis. At C4-5 there is posterior osteophyte formation at the disc space and foraminal stenosis worse on the left than the right. At the C5-6 level there is posterior osteophyte formation with mild bilateral foraminal stenosis. At the C6-7 level there is posterior osteophyte formation and uncovertebral arthropathy with mild narrowing of the foramina bilaterally. There is a mild degree of spinal stenosis. At the C7-T1 level there is no evidence of significant spinal stenosis. The right foramen is slightly narrowed. The facets are aligned bilaterally. There is some heterotopic bone formation posterior to the spinous process of C5 and C6. Thoracic spine: At the T7-8 level there is some vacuum disc phenomenon and there is irregularity of the endplates particularly the upper endplate of T8. There is also vacuum disc phenomenon at the T8-9 level. There is no evidence of acute fracture or subluxation. Lumbar spine: There is vacuum disc phenomenon at the L2-3, L3-4 and L4-5 levels. There are Schmorl nodes at multiple levels. There is no evidence of acute fracture or subluxation. At the L1-2 level there is no evidence of spinal or foraminal stenosis. At L2-3 there is disc bulge without evidence of spinal or foraminal stenosis. At the L3-4 level there is disc space narrowing and osteophyte formation with disc bulge and ligamentum flavum hypertrophy. The foramina are patent but there is a moderate degree of spinal stenosis. At the L4-5 level there is severe facet arthropathy particularly on the left with ligamentum flavum hypertrophy and disc bulge producing a severe degree of spinal stenosis. At the L5-S1 level there is no evidence of spinal or foraminal stenosis. IMPRESSION: Degenerative disc and facet changes as described above with spinal stenosis at C6-7, L3-4, and L4-5. Multilevel foraminal stenosis as described above. Electronically signed by Remy Mccollum 03/03/2019 4:18 PM
[2019-03-03] MEDS: SOLU-MEDROL IV SCH (16:50)
--- NOTE | 2019-03-03 18:47 | Carotid Study ---
DATE: 03/03/2019 BILATERAL CAROTID DUPLEX: THEATRICAL SCENIC DESIGNER: William INTERPRETING PHYSICIAN: Duane Lott MD. REQUESTING PHYSICIAN: YASMEEN Crawley, and MD Raúl. INDICATION: CVA. FINDINGS: The bilateral carotid arteries were imaged. There were no significant atherosclerotic changes with normal velocities throughout and antegrade vertebrals bilaterally. SUMMARY: No significant atherosclerotic changes noted in the bilateral carotid arteries. cc: Duane Lott MD
[2019-03-03] MEDS: KLONOPIN PO SCH ×2 (19:53→19:59)
[2019-03-03] MEDS: PRILOSEC PO SCH ×2 (19:54→19:59)
[2019-03-03] MEDS: NEURONTIN PO SCH ×2 (19:54→19:59)
[2019-03-03] MEDS: TORADOL PO SCH (19:54)
[2019-03-03] MEDS: ZOCOR PO SCH ×2 (19:54→19:59)
[2019-03-03] MEDS: NORCO-10 PO PRN (19:54)
[2019-03-04] MEDS: NORCO-10 PO PRN ×2 (01:56→08:59)
[2019-03-04] MEDS: SOLU-MEDROL IV SCH ×2 (01:56→13:53)
[2019-03-04] MEDS: TORADOL PO SCH ×3 (01:56→13:53)
[2019-03-04] MEDS: PRILOSEC PO SCH ×2 (05:39→06:18)
[2019-03-04 06:50] LABS: HEMATOCRIT 45.5 % (42.0-52.0); LYMPH# 1.14 X1000 (1.2-3.4); LYMPH% 10.9 % (20.5-51.1); MCH 27.2 PG (27-31); MCV 82.4 FL (81-99); MPV 11.1 FL (7.4-10.4); NEUT# 9.26 X1000 (1.4-6.5); NEUT% 88.1 % (42.2-75.2); PLT 243 X1000 (130-400); RBC 5.52 XMIL (4.7-6.1); RDW 13.5 % (11.5-14.5)
[2019-03-04 07:15] LABS: AGAP 6; ALB/GLOB RATIO 1.3; ALBUMIN 4.5 g/dL (3.5-5.0); ALKALINE PHOSPHATASE 60 U/L (32-122); BUN 14 mg/dL (8-22); CALCIUM 9.5 mg/dL (8.8-10.2); CHLORIDE 99 mmol/L (98-107); COSMO 272; CREATININE 0.9 mg/dL (0.7-1.2); ESTIMATED GFR > 60; GLUCOSE 133 mg/dL (70-104); GOT 25 U/L (10-34); GPT 41 U/L (10-44); POTASSIUM 4.8 mmol/L (3.5-5.1); SODIUM 135 mmol/L (136-145); TCO2 30 mmol/L (25-35); TOTAL BILIRUBIN 0.64 mg/dL (0.20-1.00)
[2019-03-04] MEDS: NEURONTIN PO SCH (08:59)
[2019-03-04] MEDS: KLONOPIN PO SCH (08:59)
[2019-03-04] MEDS ORDERED: ASPIRIN PO SCH (09:00)
[2019-03-04 11:07] VITALS: BP 183/109
--- NOTE | 2019-03-04 12:40 | ECHO REPORT ---
ORDER DATE: 03/03/2019 ECHOCARDIOGRAPHIC MEASUREMENTS: 1. Left ventricular internal diameter in diastole 4.3. 2. Left ventricular internal diameter in systole 3.0. 3. Aortic root 3.7. 4. Left atrium 4.0. SUMMARY: 1. Technically difficult study due to limited parasternal acoustic window quality. 2. Aortic valve is trileaflet and opens normally on 2-dimensional images. Peak gradient across the aortic valve is less than 10 mmHg. Mitral and tricuspid valves are without evidence of structural abnormality, while pulmonic valve is not well demonstrated. There is trace mitral regurgitation and trace tricuspid regurgitation. Aortic root is normal in size. 3. Normal left ventricular chamber size with moderate concentric left ventricular hypertrophy demonstrated. Estimated left ventricular ejection fraction appears to be at least 60%. No regional wall motion abnormality is evident. Left atrium is mildly enlarged. Right atrium and right ventricle are normal in size with normal right ventricular systolic function. 4. No pericardial effusion. 5. Appearance of inferior vena cava suggests normal central venous pressure. CONCLUSIONS: 1. Technically difficult study. 2. No significant valvular abnormality evident. 3. Moderate concentric left hypertrophy with estimated left ventricular ejection fraction at least 60%. 4. Mild left atrial enlargement. cc: Alejandro Cruz MD
[2019-03-04] MEDS ORDERED: NORCO-10 PO SCH (15:00)
[2019-03-04] MEDS ORDERED: NORVASC PO SCH (16:00)
--- NOTE | 2019-03-04 16:12 | DISCHARGE SUMMARY ---
ADMISSION DATE: 03/03/2019 DISCHARGE DATE: 03/04/2019 DISCHARGE DIAGNOSIS: Possible transient ischemic attack versus CVA. This is a 63-year-old male who came in with some left arm pain, back tightness, and he had shooting pain down his left arm, left hand numbness, slurred speech. He went up for evaluation, had a very extensive workup which as far as the neurovascular issues really was unremarkable. No stroke. No significant atherosclerosis. No carotid stenosis and his symptoms have essentially resolved. However, he also had concurrent CT scans of his cervical thorax and lumbar spine which showed significant degenerative disk disease, facet changes C6, C7, L3, L4, L5, some multilevel foraminal stenosis. His symptoms really do seem like they generate from having a bad back essentially. He has got numbness and pain in his arms and he has sciatic pain, he describes, from his lower back extending into both gluteal muscles and down the thigh in a posterior distribution. In any case, brain MRA was negative. Brain MRI had no acute stroke but did have extensive chronic ischemic microvascular change. Carotid Doppler showed no significant stenosis. Echocardiogram showed no intracardiac thrombi and I believe all the valves were pretty much normal. Study was difficult. He did have some left ventricular hypertrophy and he did have an EF of around 60%. The patient next day was doing okay except for again a little bit of back pain. He was initiated on some steroids and anti-inflammatory medicines and improved. We discussed the option that he needs to follow up with a neurosurgeon for evaluation if there is any surgical treatment or epidural injections that can be done to help with his cervical neuralgia and lumbar neuralgia. The patient is overall stable. His blood pressure has been on the high side and he is only on clonidine. May consider the addition of Norvasc because he does not seem to be under control. In any case, follow up with his PCP, who is Dr. Hayward, and follow up with [facility] for evaluation for any surgical options for his back pain and neck pain. DISCHARGE CONDITION: Stable. 32 minute discharge. cc: Ishmael Carrion MD
[2019-03-04] MEDS ORDERED: NEURONTIN PO SCH (17:00)
== END 2019-03-04 17:30 | disposition home or self-care (01) ==
LOC: ED 10:06 → INTOOBSV 13:13 → SUATTDRO 13:13 → 3N 13:13
PROVIDERS: ATTEND Internal Medicine